=== PATIENT | female | born 1950 | race Caucasian/White ===

== ENCOUNTER 2016-06-24 01:18 | Inpatient (IN) | payer OTHER, MEDICARE ==
[~2016-06-24] VITALS: Ht 157.5 cm; Wt 62.3 kg
[~2016-06-24 01:18] MED LIST: LIPITOR10 MG PO; NAPROSYN375 MG PO; NOHOMEMEDS; PREDNISONE20 MG PO
[2016-06-24 01:53] LABS: HEMATOCRIT 45.9 % (36.0-46.0); MCH 26.6 PG (29.0-34.0); MCHC 31.2 G/DL (30.0-36.0); MCV 85.5 FL (83-99); MEAN PLAT.VOLUME 9.2 uM^3 (9.5-12.4); PLATELET COUNT 241 K/uL (156-360); RBC DIS.WIDTH-CV 12.1 % (11.8-14.6); RBC DIS.WIDTH-SD 37.9 % (39-53); RED BLOOD COUNT 5.37 M/uL (3.80-5.20); WHITE BLOOD COUNT 4.1 K/uL (4.1-10.2)
[2016-06-24 02:03] LABS: CHLORIDE 100 mEq/L (99-109); POTASSIUM 3.9 mEq/L (3.7-5.4); SODIUM 138 mEq/L (136-147)
[2016-06-24 02:05] LABS: GLUCOSE 116 mg/dL (70-99)
[2016-06-24 02:06] LABS: ANION GAP 13 MEQ/L (2-14)
[2016-06-24 02:07] LABS: TOTAL BILIRUBIN 0.3 mg/dL (0.0-1.0)
[2016-06-24 02:09] LABS: ALKALINE PHOSPHATASE 96 IU/L (3-129); GFR ESTIMATE (CALCULATED) > 59 mL/min/
[2016-06-24 02:10] LABS: UREA NITROGEN (BUN) 14 mg/dL (9-23)
[2016-06-24 02:12] LABS: LIPASE 283 U/L (1.0-51.0)
[2016-06-24 02:53] LABS: INFLUENZA A VIRAL ANTIGEN NEGATIVE; INFLUENZA B VIRAL ANTIGEN POSITIVE
[2016-06-24 03:48] LABS: CREATINE KINASE 257 IU/L (1-294)
[2016-06-24 03:55] LABS: TROP-I INTERPRETATION NEGATIVE; TROPONIN-I < 0.01 ng/mL (0.0-0.30)
[2016-06-24 04:05] LABS: ADD MIUA? NO; BILIRUBIN NEGATIVE; BLOOD NEGATIVE; COLOR YELLOW ((YELLOW)); GLUCOSE (STRIP) NEGATIVE; KETONES 5; LEUKOCYTES NEGATIVE; NITRITE NEGATIVE; PROTEIN (STRIP) NEGATIVE; SPECIFIC GRAVITY 1.009 (1.000-1.030); UCUL ADDED? NO; UROBILINOGEN 0.2 MG/DL (0.2-1.0)
[2016-06-24] MEDS ORDERED: OMEPRAZOLE40 M1 PO (05:59)
[2016-06-24] MEDS ORDERED: ASPIR-LOW81 MG PO (10:53)
[2016-06-24] MEDS ORDERED: MULTI-VITAMIN1 EAC4 PO (10:53)
[2016-06-24 13:37] VITALS: BP 135/64
[2016-06-24 15:51] VITALS: BP 148/87
[2016-06-24 20:21] VITALS: BP 142/82
[2016-06-24 23:55] VITALS: BP 139/66
[2016-06-25 04:15] VITALS: BP 141/67
[2016-06-25 07:23] LABS: EOSINOPHIL (%) 0.3 % (0-5); HEMATOCRIT 41.8 % (36.0-46.0); INSTRUMENT ABS NEUTROPHIL CT 1.7 K/uL; LYMPHOCYTE COUNT 1.6 K/uL (1.0-2.8); MCH 27.2 PG (29.0-34.0); MCHC 31.6 G/DL (30.0-36.0); MEAN PLAT.VOLUME 9.8 uM^3 (9.5-12.4); MONOCYTE (%) 8.8 % (3-12); MONOCYTE COUNT 0.3 K/uL (0-0.8); NEUTROPHIL (%) 46.4 % (45-76); NEUTROPHIL COUNT 1.7 K/uL (1.8-6.4); NRBC (%) 0.5 /100 WBC (0-0); PLATELET COUNT 211 K/uL (156-360); RBC DIS.WIDTH-CV 12.4 % (11.8-14.6); RBC DIS.WIDTH-SD 39.2 % (39-53); RED BLOOD COUNT 4.86 M/uL (3.80-5.20); WHITE BLOOD COUNT 3.7 K/uL (4.1-10.2)
[2016-06-25 07:31] LABS: ALKALINE PHOSPHATASE 67 IU/L (3-129); ANION GAP 9 MEQ/L (2-14); CHLORIDE 100 MEQ/L (99-109); GFR ESTIMATE (CALCULATED) > 59 mL/min/; POTASSIUM 3.6 MEQ/L (3.7-5.4); SAMPLE HEMOLYSIS CHECK 0; SAMPLE ICTERIC CHECK 0; SAMPLE LIPEMIA CHECK 0; SODIUM 139 MEQ/L (136-147); TOTAL BILIRUBIN 0.3 MG/DL (0.0-1.0); UREA NITROGEN (BUN) 12 mg/dL (9-23)
[2016-06-25 07:33] LABS: HDL CHOLESTEROL 34 MG/DL (Desirable>=50); LDL CHOLESTEROL 60 mg/dL (Desirable<100); LIPASE 52 U/L (1.0-51.0); NON-HDL CHOLESTEROL 74 mg/dL (Desirable<160); TOTAL CHOLESTEROL 108 mg/dL (Desirable<200); TRIGLYCERIDES 69 MG/DL (Normal: <150)
[2016-06-25 07:34] LABS: GLUCOSE 82 mg/dL (70-99)
[2016-06-25 08:38] VITALS: BP 116/59
[2016-06-25 12:03] VITALS: BP 111/61
[2016-06-25] MEDS ORDERED: ANTIVERT25 MG PO (13:24)
[2016-06-25] MEDS ORDERED: TYLENOL REGULA325 MG PO (13:24)
[2016-06-25] MEDS ORDERED: OSELTAMIVIR PHO30 MG PO (13:24)
[2016-06-25] MEDS ORDERED: PREDNISONE20 MG PO (13:24)
[2016-06-25 14:55] VITALS: BP 113/58
[2016-06-25 19:30] VITALS: BP 132/66
[2016-06-25 23:00] VITALS: BP 133/74
[2016-06-26 03:53] VITALS: BP 131/70
[2016-06-26 08:56] VITALS: BP 127/70
[2016-06-26 11:22] LABS: TROP-I INTERPRETATION NEGATIVE; TROPONIN-I < 0.01 ng/mL (0.0-0.30)
[2016-06-26] MEDS ORDERED: OSELTAMIVIR PHO30 MG PO (12:04)
[2016-06-26] MEDS ORDERED: PREDNISONE20 MG PO (12:04)
[2016-06-26] MEDS ORDERED: ANTIVERT25 MG PO (12:04)
== END 2016-06-26 14:41 | disposition home or self-care (01) | DRG 312 ==
LOC: EME → EDBD 01:18 → EDOF 05:32 → 5WEST 05:32
PROVIDERS: Emergency Medicine; Internal Medicine; Nurse Practitioner Adult Health; Physician Assistant Medical
DX: I95.1 Orthostatic hypotension (principal); J10.1 Influenza due to other identified influenza virus with other respiratory manifestations; R42 Dizziness and giddiness; E78.5 Hyperlipidemia, unspecified; R11.2 Nausea with vomiting, unspecified; E86.1 Hypovolemia; R51 Headache; K21.9 Gastro-esophageal reflux disease without esophagitis; R10.9 Unspecified abdominal pain; E86.0 Dehydration; W19.XXXA Unspecified fall, initial encounter; Y99.9 Unspecified external cause status; J32.9 Chronic sinusitis, unspecified; R74.8 Abnormal levels of other serum enzymes
CPT/HCPCS: 70450; 70486; 70551; 71010; 72125; 74177; 80053; 80061; 81003; 82550; 83690; 83735; 84484; 85025; 85027; 87502; 93005; 93306; 99281; 99285; G0378; J1200; J1885; J2405; J7030; J7120; J7512; S0028